=== PATIENT | female | born 1930 | race Caucasian/White ===

== ENCOUNTER 2016-10-03 06:23 | Inpatient (IN) | payer OTHER ==
[~2016-10-03] VITALS: Ht 157.5 cm; Wt 81.9 kg
[~2016-10-03 06:23] MED LIST: AMLODIPINE-BEN1 EAC2 PO; CELEBREX200 MG PO; GABAPENTIN100 MG PO; MOTRIN600 MG PO; OMEPRAZOLE40 M1 PO; SKELAXIN800 MG PO; TYLENOL ARTHRI650 MG PO
[2016-10-03 07:08] LABS: HEMATOCRIT 47.3 % (36.0-46.0); MCH 27.7 PG (29.0-34.0); MCHC 32.1 G/DL (30.0-36.0); MCV 86.3 FL (83-99); MEAN PLAT.VOLUME 8.7 uM^3 (9.5-12.4); PLATELET COUNT 172 K/uL (156-360); RED BLOOD COUNT 5.48 M/uL (3.80-5.20); WHITE BLOOD COUNT 2.5 K/uL (4.1-10.2)
[2016-10-03 07:34] LABS: ADD MIUA? YES; BILIRUBIN NEGATIVE; BLOOD MODERATE; COLOR YELLOW ((YELLOW)); GLUCOSE (STRIP) NEGATIVE; KETONES 20; LEUKOCYTES LARGE; NITRITE NEGATIVE; PROTEIN (STRIP) 30; SPECIFIC GRAVITY 1.015 (1.000-1.030); UROBILINOGEN 0.2 MG/DL (0.2-1.0)
[2016-10-03 07:42] LABS: ALKALINE PHOSPHATASE 91 IU/L (3-129); ANION GAP 12 MEQ/L (2-14); CHLORIDE 101 MEQ/L (99-109); GFR ESTIMATE (CALCULATED) 56 mL/min/; GLUCOSE 182 mg/dL (70-99); POTASSIUM 4.6 MEQ/L (3.7-5.4); SAMPLE HEMOLYSIS CHECK 1; SAMPLE ICTERIC CHECK 0; SAMPLE LIPEMIA CHECK 0; SODIUM 135 MEQ/L (136-147); TOTAL BILIRUBIN 0.6 MG/DL (0.0-1.0); UREA NITROGEN (BUN) 18 mg/dL (9-23)
[2016-10-03 07:42] LABS: BACTERIA NONE SEEN /HPF; EPITHELIAL CELLS NONE SEEN /HPF; MUCUS NONE SEEN /LPF; RED BLOOD CELLS TNTC /HPF (0-5); UCUL ADDED? YES; WHITE BLOOD CELLS TNTC /HPF (0-5); WHITE BLOOD CELLS CLUMP MANY /HPF (0-5)
[2016-10-03 11:41] VITALS: BP 95/57
[2016-10-03] MEDS ORDERED: TURMERIC500 M1 PO (13:00)
[2016-10-03] MEDS ORDERED: THERAGRAN1 TABLET PO (13:00)
[2016-10-03] MEDS ORDERED: SUPER B-50 COM1 EACH PO (13:00)
[2016-10-03 14:00] VITALS: BP 105/56
[2016-10-03] MEDS ORDERED: SUPER B COMP1 TABLET PO (15:11)
[2016-10-03] MEDS ORDERED: ESTRACE42.5 GM VG (15:13)
[2016-10-03] MEDS ORDERED: ARTIFICIAL TEAR1510 BOTH EYES (15:13)
[2016-10-03] MEDS ORDERED: TURMERIC500 MG PO (15:13)
[2016-10-03] MEDS ORDERED: BENADRYL25 MG PO (15:14)
[2016-10-03 15:20] VITALS: BP 92/50
[2016-10-03 17:22] LABS: ANION GAP 14 MEQ/L (2-14); CHLORIDE 109 MEQ/L (99-109); GFR ESTIMATE (CALCULATED) 41 mL/min/; GLUCOSE 169 mg/dL (70-99); POTASSIUM 3.8 MEQ/L (3.7-5.4); SAMPLE HEMOLYSIS CHECK 0; SAMPLE ICTERIC CHECK 0; SAMPLE LIPEMIA CHECK 0; SODIUM 137 MEQ/L (136-147); UREA NITROGEN (BUN) 21 mg/dL (9-23)
[2016-10-03 18:00] VITALS: BP 100/52
[2016-10-03 18:24] LABS: HEMATOCRIT 31.8 % (36.0-46.0); MCH 28.8 PG (29.0-34.0); MCV 87.4 FL (83-99); RBC DIS.WIDTH-CV 13.6 % (11.8-14.6); RBC DIS.WIDTH-SD 43.9 % (39-53); WHITE BLOOD COUNT 16.9 K/uL (4.1-10.2)
[2016-10-03 18:25] LABS: RED BLOOD COUNT 3.64 M/uL (3.80-5.20)
[2016-10-03 18:36] LABS: ABS NEUTROPHIL COUNT 15.7; ANISOCYTOSIS 1+; EOSINOPHIL ABS CT 0; INSTRUMENT ABS NEUTROPHIL CT 15.8 K/uL; MEAN PLAT.VOLUME 9.6 uM^3 (9.5-12.4); PLAT.SUFFICIENCY ADEQUATE
[2016-10-03 18:37] LABS: PLATELET COUNT 110 K/uL (156-360)
[2016-10-03 19:27] VITALS: BP 92/55
[2016-10-03 22:17] LABS: ANION GAP 11 MEQ/L (2-14); CHLORIDE 107 MEQ/L (99-109); GFR ESTIMATE (CALCULATED) 38 mL/min/; GLUCOSE 152 mg/dL (70-99); POTASSIUM 3.6 MEQ/L (3.7-5.4); SAMPLE HEMOLYSIS CHECK 0; SAMPLE ICTERIC CHECK 0; SAMPLE LIPEMIA CHECK 0; SODIUM 136 MEQ/L (136-147); TOTAL BILIRUBIN 0.6 MG/DL (0.0-1.0); UREA NITROGEN (BUN) 23 mg/dL (9-23)
[2016-10-03 22:19] LABS: ALKALINE PHOSPHATASE 60 IU/L (3-129)
[2016-10-03 22:33] VITALS: BP 106/55
[2016-10-04] VITALS (7 sets, daily range): BP systolic 94–140; BP diastolic 55–75
[2016-10-04 05:53] LABS: ANION GAP 7 MEQ/L (2-14); CHLORIDE 104 MEQ/L (99-109); GFR ESTIMATE (CALCULATED) 35 mL/min/; SAMPLE HEMOLYSIS CHECK 0; SAMPLE ICTERIC CHECK 0; SAMPLE LIPEMIA CHECK 0; SODIUM 136 MEQ/L (136-147); UREA NITROGEN (BUN) 28 mg/dL (9-23)
[2016-10-04 05:58] LABS: GLUCOSE 108 mg/dL (70-99)
[2016-10-04 06:44] LABS: HEMATOCRIT 30.3 % (36.0-46.0); MCH 28.4 PG (29.0-34.0); MCV 86.1 FL (83-99); MEAN PLAT.VOLUME 9.7 uM^3 (9.5-12.4); PLATELET COUNT 94 K/uL (156-360); RBC DIS.WIDTH-CV 13.8 % (11.8-14.6); RBC DIS.WIDTH-SD 43.6 % (39-53); RED BLOOD COUNT 3.52 M/uL (3.80-5.20); WHITE BLOOD COUNT 21.1 K/uL (4.1-10.2)
[2016-10-04 08:17] LABS: ABS NEUTROPHIL COUNT 19.8; EOSINOPHIL ABS CT 0; INSTRUMENT ABS NEUTROPHIL CT 19.3 K/uL; PLAT.SUFFICIENCY DECREASED
[2016-10-04 18:12] LABS: HEMATOCRIT 33.7 % (36.0-46.0); MCH 27.9 PG (29.0-34.0); MCHC 32.3 G/DL (30.0-36.0); MCV 86.4 FL (83-99); PLATELET COUNT 94 K/uL (156-360); RBC DIS.WIDTH-CV 13.9 % (11.8-14.6); RBC DIS.WIDTH-SD 44.1 % (39-53)
[2016-10-04 18:59] LABS: ABS NEUTROPHIL COUNT 18.1; ANISOCYTOSIS 1+; BAND NEUTROPHILS 30.8 % (0-8.0); BURR CELLS 1+; EOSINOPHIL ABS CT 0; INSTRUMENT ABS NEUTROPHIL CT 18.5 K/uL; LYMPHOCYTES 3.5 % (15.0-45.0); METAMYELOCYTES 9.3 %; POIKILOCYTOSIS 1+; TOX.VACUOLIZATION 2+
[2016-10-04 19:12] LABS: ANION GAP 11 MEQ/L (2-14); CHLORIDE 102 MEQ/L (99-109); GFR ESTIMATE (CALCULATED) 35 mL/min/; GLUCOSE 101 mg/dL (70-99); POTASSIUM 3.9 MEQ/L (3.7-5.4); SAMPLE HEMOLYSIS CHECK 0; SAMPLE ICTERIC CHECK 0; SAMPLE LIPEMIA CHECK 0; SODIUM 132 MEQ/L (136-147); UREA NITROGEN (BUN) 30 mg/dL (9-23)
[2016-10-04 19:19] LABS: SEG.NEUTROPHILS 55.5 % (46.0-76.0)
[2016-10-05 01:41] LABS: CHLORIDE 106 mEq/L (99-109); POTASSIUM 3.8 mEq/L (3.7-5.4); SODIUM 134 mEq/L (136-147)
[2016-10-05 01:42] LABS: GLUCOSE 121 mg/dL (70-99)
[2016-10-05 01:44] LABS: ANION GAP 9 MEQ/L (2-14)
[2016-10-05 01:46] LABS: GFR ESTIMATE (CALCULATED) 35 mL/min/
[2016-10-05 01:47] LABS: UREA NITROGEN (BUN) 32 mg/dL (9-23)
[2016-10-05 04:10] VITALS: BP 130/69
[2016-10-05 05:42] LABS: HEMATOCRIT 29.6 % (36.0-46.0); MCH 29.1 PG (29.0-34.0); MCHC 34.1 G/DL (30.0-36.0); MCV 85.3 FL (83-99); MEAN PLAT.VOLUME 10.7 uM^3 (9.5-12.4); PLATELET COUNT 96 K/uL (156-360); RBC DIS.WIDTH-CV 14.1 % (11.8-14.6); RBC DIS.WIDTH-SD 44.1 % (39-53); RED BLOOD COUNT 3.47 M/uL (3.80-5.20)
[2016-10-05 05:56] LABS: ANION GAP 10 MEQ/L (2-14); CHLORIDE 103 MEQ/L (99-109); GFR ESTIMATE (CALCULATED) 33 mL/min/; GLUCOSE 103 mg/dL (70-99); POTASSIUM 3.8 MEQ/L (3.7-5.4); SAMPLE HEMOLYSIS CHECK 0; SAMPLE ICTERIC CHECK 0; SAMPLE LIPEMIA CHECK 0; SODIUM 134 MEQ/L (136-147); UREA NITROGEN (BUN) 29 mg/dL (9-23)
[2016-10-05 07:41] VITALS: BP 127/73
[2016-10-05 07:51] LABS: ABS NEUTROPHIL COUNT 21.7; ANISOCYTOSIS 1+; EOSINOPHIL ABS CT 0; INSTRUMENT ABS NEUTROPHIL CT 19.2 K/uL; LYMPHOCYTES 1.5 % (15.0-45.0); METAMYELOCYTES 0.5 %; PLAT.SUFFICIENCY DECREASED
[2016-10-05 07:52] LABS: SEG.NEUTROPHILS 85.5 % (46.0-76.0)
[2016-10-05 11:43] VITALS: BP 136/78
[2016-10-05 16:40] VITALS: BP 136/78
[2016-10-05 19:25] VITALS: BP 124/64
[2016-10-06 00:10] VITALS: BP 117/68
[2016-10-06 04:00] VITALS: BP 129/74
[2016-10-06 08:00] VITALS: BP 139/97
[2016-10-06 09:44] LABS: HEMATOCRIT 31.9 % (36.0-46.0); MCH 27.8 PG (29.0-34.0); MCHC 33.5 G/DL (30.0-36.0); MCV 82.9 FL (83-99); MEAN PLAT.VOLUME 10.1 uM^3 (9.5-12.4); PLATELET COUNT 122 K/uL (156-360); RBC DIS.WIDTH-CV 13.9 % (11.8-14.6); RBC DIS.WIDTH-SD 42.1 % (39-53); RED BLOOD COUNT 3.85 M/uL (3.80-5.20); WHITE BLOOD COUNT 21.7 K/uL (4.1-10.2)
[2016-10-06 10:18] LABS: ANION GAP 10 MEQ/L (2-14); CHLORIDE 103 MEQ/L (99-109); GFR ESTIMATE (CALCULATED) 35 mL/min/; GLUCOSE 115 mg/dL (70-99); SAMPLE HEMOLYSIS CHECK 0; SAMPLE ICTERIC CHECK 0; SAMPLE LIPEMIA CHECK 0; SODIUM 136 MEQ/L (136-147); UREA NITROGEN (BUN) 31 mg/dL (9-23)
[2016-10-06 10:28] LABS: ABS NEUTROPHIL COUNT 20.2; ANISOCYTOSIS 1+; BAND NEUTROPHILS 9.5 % (0-8.0); EOSINOPHIL ABS CT 0; INSTRUMENT ABS NEUTROPHIL CT 20.1 K/uL; LYMPHOCYTES 3.5 % (15.0-45.0); PLAT.SUFFICIENCY DECREASED; SEG.NEUTROPHILS 83.5 % (46.0-76.0); SMUDGE CELLS 4.3
[2016-10-06 11:41] VITALS: BP 132/76
[2016-10-06 16:41] VITALS: BP 129/72
[2016-10-06 20:06] VITALS: BP 124/63
[2016-10-07] VITALS (7 sets, daily range): BP systolic 115–157; BP diastolic 68–88
[2016-10-07 06:09] LABS: EOSINOPHIL (%) 0.2 % (0-5); HEMATOCRIT 32.9 % (36.0-46.0); IMMATURE GRANULOCYTE (%) 3.5 % (0.0-0.7); IMMATURE GRANULOCYTE COUNT 0.5 K/uL; INSTRUMENT ABS NEUTROPHIL CT 12.6 K/uL; LYMPHOCYTE COUNT 0.9 K/uL (1.0-2.8); MCH 27.1 PG (29.0-34.0); MCHC 33.1 G/DL (30.0-36.0); MCV 81.8 FL (83-99); MEAN PLAT.VOLUME 10.1 uM^3 (9.5-12.4); MONOCYTE (%) 8.1 % (3-12); MONOCYTE COUNT 1.3 K/uL (0-0.8); NEUTROPHIL (%) 82.2 % (45-76); NEUTROPHIL COUNT 12.6 K/uL (1.8-6.4); PLATELET COUNT 140 K/uL (156-360); RBC DIS.WIDTH-SD 41.8 % (39-53); RED BLOOD COUNT 4.02 M/uL (3.80-5.20); WHITE BLOOD COUNT 15.4 K/uL (4.1-10.2)
[2016-10-07 06:33] LABS: ANION GAP 12 MEQ/L (2-14); CHLORIDE 99 MEQ/L (99-109); GFR ESTIMATE (CALCULATED) 33 mL/min/; GLUCOSE 110 mg/dL (70-99); SAMPLE HEMOLYSIS CHECK 0; SAMPLE ICTERIC CHECK 0; SAMPLE LIPEMIA CHECK 0; SODIUM 136 MEQ/L (136-147); UREA NITROGEN (BUN) 31 mg/dL (9-23)
[2016-10-08 04:00] VITALS: BP 145/73
[2016-10-08 08:22] VITALS: BP 138/63
[2016-10-08 10:04] LABS: HEMATOCRIT 34.9 % (36.0-46.0); MCH 28.7 PG (29.0-34.0); MCHC 34.4 G/DL (30.0-36.0); MCV 83.5 FL (83-99); MEAN PLAT.VOLUME 10.5 uM^3 (9.5-12.4); NRBC (%) 0.2 /100 WBC (0-0); PLATELET COUNT 148 K/uL (156-360); RBC DIS.WIDTH-CV 14.3 % (11.8-14.6); RBC DIS.WIDTH-SD 43.6 % (39-53); RED BLOOD COUNT 4.18 M/uL (3.80-5.20); WHITE BLOOD COUNT 12.3 K/uL (4.1-10.2)
[2016-10-08 10:41] LABS: ANION GAP 14 MEQ/L (2-14); CHLORIDE 97 MEQ/L (99-109); GFR ESTIMATE (CALCULATED) 38 mL/min/; GLUCOSE 96 mg/dL (70-99); POTASSIUM 4.1 MEQ/L (3.7-5.4); SAMPLE HEMOLYSIS CHECK 0; SAMPLE ICTERIC CHECK 0; SAMPLE LIPEMIA CHECK 0; SODIUM 134 MEQ/L (136-147); UREA NITROGEN (BUN) 28 mg/dL (9-23)
[2016-10-08 10:52] LABS: ABS NEUTROPHIL COUNT 8.3; ATYPICAL LYMPHOCYTE 0.9 %; BAND NEUTROPHILS 6.1 % (0-8.0); EOSINOPHIL ABS CT 0.1; EOSINOPHILS 0.9 % (0-5.0); INSTRUMENT ABS NEUTROPHIL CT 7.1 K/uL; LYMPHOCYTES 12.2 % (15.0-45.0); METAMYELOCYTES 4.3 %; MYELOCYTES 2.6 %; PLAT.SUFFICIENCY DECREASED
[2016-10-08 11:03] LABS: SEG.NEUTROPHILS 61.7 % (46.0-76.0)
[2016-10-08 11:37] VITALS: BP 146/76
[2016-10-08 16:15] VITALS: BP 148/81
[2016-10-08 20:00] VITALS: BP 151/77
[2016-10-08 23:55] VITALS: BP 161/81
[2016-10-09] VITALS (7 sets, daily range): BP systolic 124–168; BP diastolic 58–85
[2016-10-10 04:00] VITALS: BP 139/79
[2016-10-10 08:00] VITALS: BP 134/68
[2016-10-10 08:18] VITALS: BP 130/61
[2016-10-10 12:35] VITALS: BP 108/54
[2016-10-10 16:36] VITALS: BP 111/54
[2016-10-10 20:00] VITALS: BP 134/68
[2016-10-11 00:30] VITALS: BP 144/75
[2016-10-11 04:10] VITALS: BP 136/78
[2016-10-11 07:23] VITALS: BP 136/65
[2016-10-11 12:10] VITALS: BP 140/67
[2016-10-11] MEDS ORDERED: KLOR-CON M1010 MEQ PO (13:21)
[2016-10-11] MEDS ORDERED: DUONEB 2.5-0.5 M3 ML AEROSOL (13:21)
[2016-10-11] MEDS ORDERED: FUROSEMIDE20 MG PO (13:22)
[2016-10-11] MEDS ORDERED: DOCUSATE SODIU100 MG PO (13:24)
[2016-10-11] MEDS ORDERED: Ocean Nasal 0.65% BOTH NARES (13:24)
[2016-10-11] MEDS ORDERED: ROCEPHIN2 GM/50 ML IV (13:27)
[2016-10-11 15:22] VITALS: BP 115/81
== END 2016-10-11 19:36 | DRG 871 ==
LOC: EME → EDBD 06:23 → EME 06:23 → 4EAST 09:41 → EDOF 09:41 → ENRESERV 09:46 → EDOF 09:46 → ENRESERV 09:57 → EDOF 11:12 → ENRESERV 11:13 → 3EAST 11:15 → ENRESERV 11:24 → 4EAST 11:27
PROVIDERS: Hospitalist; Internal Medicine; Nurse Practitioner Family
DX: A41.51 Sepsis due to Escherichia coli [E. coli] (principal); N12 Tubulo-interstitial nephritis, not specified as acute or chronic; K21.9 Gastro-esophageal reflux disease without esophagitis; I10 Essential (primary) hypertension; J81.0 Acute pulmonary edema; J96.01 Acute respiratory failure with hypoxia; E87.1 Hypo-osmolality and hyponatremia; N28.1 Cyst of kidney, acquired; N17.9 Acute kidney failure, unspecified; E86.0 Dehydration; R73.03 Prediabetes; E87.2 Acidosis; J98.11 Atelectasis; R33.9 Retention of urine, unspecified; G89.29 Other chronic pain; E87.70 Fluid overload, unspecified; I27.2 Other secondary pulmonary hypertension
CPT/HCPCS: 71010; 71020; 74176; 80048; 80048 91; 80053; 81003; 83605; 83880; 85025; 85025 91; 85027; 87040; 87077; 87086; 87186; 87801; 93005; 93306; 94640; 94640 76; 94760; 94799; 99202; 99281; 99285; J0692; J0696; J1644; J1885; J1940; J2270; J2543; J2920; J7030; J7050; J7070